=== PATIENT | female | born 1955 | race Caucasian/White ===

== ENCOUNTER 2016-11-15 18:25 | Emergency (ER) | payer BC, OTHER, SELFPAY ==
[~2016-11-15] VITALS: Ht 152.4 cm; Wt 59.1 kg
[2016-11-15] MEDS ORDERED: LIDOCAINE 1%, 20ML ONE ×2 (18:43→19:42)
[2016-11-15] MEDS ORDERED: LIDOCAINE 1%, 20ML INFIL ONE (19:00)
[2016-11-15] MEDS ORDERED: BACITRACIN ZINC OINT 500U/GM, 0.9 GM ONE (19:04)
[2016-11-15 20:19] VITALS: BP 129/81
== END 2016-11-15 20:21 | disposition home or self-care (01) ==
LOC: ED 20:13
DX: S81.012A Laceration without foreign body, left knee, initial encounter (principal); W01.0XXA Fall on same level from slipping, tripping and stumbling without subsequent striking against object, initial encounter; Y93.89 Activity, other specified; Y99.8 Other external cause status; Y92.488 Other paved roadways as the place of occurrence of the external cause
CPT/HCPCS: 12034; 73564; 99284; J3490